=== PATIENT | male | born 1965 | race Caucasian/White ===

== ENCOUNTER 2020-05-27 15:43 | Inpatient (IN) | payer OTHER ==
[~2020-05-27] VITALS: Ht 170.2 cm; Wt 85.4 kg
[2020-05-27 16:27] VITALS: BP 125/81
--- NOTE | 2020-05-27 18:19 | NUR ---
55 year old male arrives via cart accompnied by ambulance adelinakathleen FROM [facility] ER. CURRENTLY LIVING AT [facility] AND IS REPORTED TO HAVE SWALLOWED BLEACH AND A POPSICLE STICK IN ATTEMPT TO HARM SELF. UPON ARRIVAL TO UNIT IS COOPERATIVE-MILDLY ANXIOUS BUT DENIES SI/SH AT THIS TIME. REQUESTING TO CALL SENIOR CARE AND STATES THAT HE MISSES HIS ROOM.
--- NOTE | 2020-05-27 19:36 | NUR ---
RECEIVED CALL FROM RN THROUGH [facility] [phone] SHE PROVIDED NUMBER FOR DC PLANNING OR FOR MD/STAFF INFO ALSO PROVIDED WITH NUMBER OF PTS COMPRESSOR STATION ENGINEER THROUGH [facility] [phone].
[2020-05-27 19:42] VITALS: BP 126/86
--- NOTE | 2020-05-28 04:00 | NUR ---
05-27-20 CARE TRANSFERED AT 1900 OBSERVED PT SITTING IN DAY ROOM. 194 PT AAOX3, VSS, RR EVEN AND NONLABORED ON RA. PT DENIES PAIN AND SI/HI. PT PRESENTS ANXIOUS BUT HAS REMAINED CALM DURING NURSING ASSESSMENT. DURING MEDICATION ADMIN PT HAD NO DIFFICULTIES, PT REPORTED HE WANTED TO GO HOME, PT WAS REASSURED. DURING NEXT ROUND NOTED PT LEFT SIDE LYING RESTING IN BED WITH EYES CLOSED. ZERO S/S OF ACUTE DISTRESS NOTED, PT WILL CONTINUE TO BE MONITOR PER [facility] PROTOCOL.
[2020-05-28 07:22] VITALS: BP 110/67
[2020-05-28 08:51] VITALS: BP 126/86
[2020-05-28 11:16] LABS: ALBUMIN 3.8 g/dL (3.4-5.0); DIRECT BILIRUBIN < 0.1 mg/dL (<0.1-0.2); SGOT 19 U/L (15-37); SGPT 31 U/L (30-65); TOTAL BILIRUBIN 0.3 mg/dL (0.2-1.0); TOTAL PROTEIN 7.9 g/dL (6.4-8.2)
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
--- NOTE | 2020-05-28 11:32 | NUR ---
ASSUMED CARE AT 0700 TODAY. PT. GOT UP, DRESSED AND ON THE UNIT FOR MEALS. HE ANSWERS QUESTIONS SLOWLY AND SEEMS TO UNDERSTAND MOST OF THE INFORMATION GIVEN TO HIM. HE WAS COOPERATIVE WITH TAKING HIS MORNING MEDICATIONS AND FEEDING HIMSELF. NO NEW PROBLEMS NOTED OR VOICED. HE APPEARS DEPRESSED.
[2020-05-28 19:51] VITALS: BP 118/77
--- NOTE | 2020-05-29 04:29 | NUR ---
ASSUMED CARE FROM DAY SHIFT , PT IN DAYROOM CALM COOPERATIVE,AMBULATING , GAIT STEADY. PO MEDICATION TAKEN WITH HS SNACK. PT RESTED WELL THROUGHOUT HOURLY ROUNDS ,WILL CONINTUE WITH CURRENT PLAN OF CARE.
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
--- NOTE | 2020-05-29 18:00 | NUR ---
Pt. got dried clothes out of laundry. He was very patient when his requests were not immediately met saying take your time. Eating well. Stated he had a large BM that was soft not diarrhea. Instructed to report any/all BM's and especially diarrhea to staff and to show it to staff. Said he would. A & O X4.
[2020-05-29 19:52] VITALS: BP 125/80
--- NOTE | 2020-05-29 21:15 | NUR ---
Assumed care on 05/29/20 @ 19:15. Calm and cooperative, after being introduced to this nurse, calls by name on subsequent interactions. HRRR, lungs CTA bilat, ABD n x 4 q, Compliant with medication, taking large p.o. meds whole in yogart and small p.o. meds whole with water. Denies SI/HI, Denies hallucinations, reports small amount of depression and anxiety. In bed lying on the top of the sheets and blankets, reports that he will be hot if he gets under the blankets. Will continue to monitor for safety and comfort.
[2020-05-29 21:52] VITALS: BP 125/80
--- NOTE | 2020-05-30 05:57 | NUR ---
Slept well throughout the night for a total of 8 hours.
[2020-05-30 07:40] VITALS: BP 123/90
[2020-05-30 08:30] VITALS: BP 123/90
--- NOTE | 2020-05-30 08:31 | NUR ---
PT TOOK MEDS WHOLE WITHOUT ANY ISSUES. PT UP AD SHAKIR, HAS A LIMP TO GAIT. PT DRINKING COFFEE THIS AM AND WATER. PT DENIES ANY PAIN. PT STEADY ON FEET.
--- NOTE | 2020-05-30 17:30 | NUR ---
Faxed NH updates to [facility].
--- NOTE | 2020-05-30 17:37 | NUR ---
AFTER GROUP PT RAN TO ROOM TO USE THE BATHROOM. PT ENCOURAGED TO SLOW DOWN. PT STATED TO NURSE EARLIER THAT HE HAS BURNING WITH VOIDING. PT URINE ON 05/22 WAS NEG. PT STATED HE HAS NO ISSUES WITH BM.
--- NOTE | 2020-05-30 18:34 | NUR ---
PT STATED HE HAS A SORE THROAT, ADM LAKSHMI GARLAND.
[2020-05-30 19:55] VITALS: BP 139/84
--- NOTE | 2020-05-30 21:03 | NUR ---
Assumed care on 05/30/20 @ 19:15, Reported himself to be trembling. Provided HS meds, whole with yogart to help swollow large tablets, fed himself the remainder of the cup of yogart. Toileted himself and returned to the day room, watching baseball. Will continue to monitor as per protocol for patient safety and comfort.
[2020-05-30 23:49] VITALS: BP 139/84
[2020-05-31 01:59] LABS: URINE BILIRUBIN NEGATIVE (Negative); URINE BLOOD NEGATIVE (Negative); URINE CLARITY CLEAR; URINE COLOR YELLOW; URINE GLUCOSE-RANDOM* NEGATIVE (Negative); URINE KETONES NEGATIVE (Negative); URINE LEUKOCYTES-REFLEX NEGATIVE (Negative); URINE NITRITE-REFLEX NEGATIVE (Negative); URINE PROTEIN (DIPSTICK) NEGATIVE (Negative); URINE SPECIFIC GRAVITY <= 1.005 (1.005-1.035); URINE UROBILINOGEN 0.2 E.U./dl (0.2-1.0)
--- NOTE | 2020-05-31 06:00 | NUR ---
SLEPT 7.2 HOURS OVERNIGHT.
[2020-05-31 07:34] VITALS: BP 125/84
--- NOTE | 2020-05-31 08:13 | NUR ---
PT SITTING IN DINING ROOM. PT FEEDING SELF. PT TOOK MEDS WHOLE ALL AT ONCE. PT VERY INTRUSIVE WITH TOUCH, PT LIKES TO TOUCH INDIVIDUAL ARMS AND SAY I WANT TO TELL YOU SOMETHING. PT STATED HE HAS SORE TO LOWER LIP, CANKER SORE. PT STATED HE HAD A SEIZURE LAST NIGHT, A LITTLE ONE. PT STATED HE LIKES TO TALK ABOUT HIS FEELINGS.
[2020-05-31 08:30] VITALS: BP 125/84
--- NOTE | 2020-05-31 10:52 | NUR ---
PT STATED HE HAD A BAD DREAM LAST NIGHT AND LIKES TO ACT IT OUT. HE SAID HE HELD HIS PILLOW AND SQUEEZED IT.
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
--- NOTE | 2020-05-31 15:30 | NUR ---
PT WAS IN GROUP AND COMPLAINED OF LEFT SIDE HURTING OF 8 ON 1-10 SCALE. ADM TYLENOL 325MG 2 TABS PO FOR PAIN.
--- NOTE | 2020-05-31 16:00 | NUR ---
PT DID STATE TO THIS CIGARETTE PACKING MACHINE OPERATOR THAT HE LIKES TO ACT OUT HIS DREAMS. PT SAID ONE OF HIS DREAMS WAS TO BURN DOWN THE HALFWAY. DR. HAMILTON DID TALK WITH PT AND ORDERED MEDICATION FOR HIS NIGHTMARES.
[2020-05-31 19:31] VITALS: BP 125/82
--- NOTE | 2020-06-01 01:49 | NUR ---
05-31-20 CARE TRANSFERRED 1899 OBSERVED PT SITTING AT TABLE IN DAY ROOM WATCHING TV. 193 AAOX3, VSS, RR EVEN AND NONLABORED ON RA. PT DENIES ANY PAIN AND SI/HI. PT HAS BEEN CALM AND COOPERATIVE DURING NURSING ASSESSMENT. DURING MEDICATION ADMIN PT HAD NO DIFFICULTIES. ZERO S/S OF ACUTE DISTRESS NOTED, PT WILL BE MONITOR PER [facility] PROTOCOL.
[2020-06-01 07:17] VITALS: BP 116/83
--- NOTE | 2020-06-01 09:40 | NUR ---
PATIENT CARE ASSUMED AT 0700 - PLEASANT AND SOCIAL. NO ISSUES - SLEPT WELL- GOOD APPETITE. MEDICATION COMPLIANT. AMBULATES WITH A SHUFFLE - PARTICIPATED IN GROUPS - MAKES NEEDS KNOWN.
[2020-06-01 20:02] VITALS: BP 126/78
--- NOTE | 2020-06-02 03:44 | NUR ---
06-01-20 CARE TRANSFERRED 1899 OBSERVED PT SITTING IN DAY ROOM WATCHING TV. 1924 PT AAOX2, VSS, RR EVEN AND NONLABORED ON RA. PT PRESENTS ANXIOUS, CALM AND COOPERATIVE AND REPORTED HE HAD A COUPLE OF SEZIURES TODAY, BUT FELT OK AT THIS TIME. PT DENIES ANY PAIN OR SI/HI. DURING MEDICATION ADMIN PT REPORTED HE WANTS TO GO HOME TO HIS ROOM. PT HAD NO DIFFICULTIES TAKING HIS MEDICATION. LATER NOTED PT RIGHT SIDE LYING RESTING IN BED WITH EYES CLOSED. ZERO S/S OF ACUTE DISTRES NOTED, PT WILL CONTINUE TO BE MONITOR PER [facility] PROTOCOL.
[2020-06-02 07:28] VITALS: BP 128/87
--- NOTE | 2020-06-02 11:15 | NUR ---
ASSUMED CARE OF PT AT 0700. PT ALERT AND ORIENTED TIMES FOUR, CALM AND COOPERATIVE. VSS. PT DENEIS SI/HI/AH/VH. ALSO DENIES PAIN/SOA. PT STATES HE SOMETIMES GETS DEPRESSED, BUT NOT TODAY. PT TOLERATES MEDS AND MEALS. PT ATTENDS GROUPS AND INTERACTS WELL WITH STAFF AND PEERS. PT PROGRESSING TOWRADS POC GOALS.
[2020-06-02 20:00] VITALS: BP 130/90
[2020-06-02 23:57] VITALS: BP 130/90
--- NOTE | 2020-06-03 03:57 | NUR ---
ASSUMED CARE ON 06/02/20, SEATED ON A COUCH IN THE DAY ROOM, WATCHING TV AND SOCIALIZING WITH PEERS, REQUESTING NEEDS FROM STAFF. COOPERATES WITH ASSESSMENT AND COMPLIANT WITH MEDICATION ADMINISTRATION. TAKES MEDS WHOLE, TAKES LARGE P.O. MEDS WITH YOGART. HRRR, LUNGS CTA BILAT, ABD N X 4Q, LAST REPORTED BM ON 05/29. GENERALLY INDEPENDENT WITH TOILETING, HOWEVER, WHEN IN HIS ROOM OVERNIGHT WAS NOTED TO BE IN BED WITH NO PANTS OR BRIEFS ON AND THE ENTIRE BATHROOM FLOORS AND TOILET SEAT WET. WET SHORTS AND WET HOSPITAL PANTS NOTED ON THE FLOOR NEXT TO HIS BED. GIVEN INCONTINENT CARE AND THE BATHROOM CLEANED AND WET CLOTHES LAUNDRY. BED IN LOW POSITION. WILL CONTINUE TO MONITOR PER UNIT PROTOCOL.
[2020-06-03 07:29] VITALS: BP 109/72
--- NOTE | 2020-06-03 13:06 | NUR ---
DONOVAN contacted Josh to coordinate d/c for tomorrow. She said that nursing staff will contact DONOVAN to arrange transportation. DONOVAN team will continue to follow pt during his stay on this unit.
--- NOTE | 2020-06-03 16:09 | NUR ---
PT IN A PLEASANT MOOD THROUGHOUT THE DAY. AMBULATES IN THE SIMS AND DAY ROOM WITHOUT ANY ASSIST. PLANS ARE FOR PT TO DC 06/04/20. PT IS AWARE OF DC .
[2020-06-03 19:29] VITALS: BP 106/61
--- NOTE | 2020-06-04 05:30 | NUR ---
Assumed pt's care this pm shift. Pt alert and oriented x4. Pt was in his room at time of assessment. Pt was calm and cooperative during assessment. Pt denied SI/HI/AVH. Pt denied anxiety and/or depression. Pt denied pain. Meds given per emar. Pt took meds whole. Pt slept well this shift. Pt now awake, out in the dayroom, with a very happy affect, greeting staffs. Will given county sheriff meds and will continue to monitor.
[2020-06-04 07:38] VITALS: BP 131/83
[2020-06-04] MEDS ORDERED: RISPERDAL 1 MG T1 MG PO (10:18)
[2020-06-04] MEDS ORDERED: REVIA 50 MG TAB50 M1 PO (10:18)
[2020-06-04] MEDS ORDERED: GEMFIBROZIL 60600 M1 PO (10:18)
[2020-06-04] MEDS ORDERED: PRAZOSIN HCL1 MG PO (10:18)
[2020-06-04] MEDS ORDERED: IRON325 PO (10:18)
[2020-06-04] MEDS ORDERED: CYMBALTA30 MG PO (10:18)
[2020-06-04] MEDS ORDERED: COZAAR 25 MG TA25 M1 PO (10:18)
[2020-06-04] MEDS ORDERED: LEVOTHYROXINE88 MCG PO (10:18)
[2020-06-04] MEDS ORDERED: DIVALPROEX SOD500 M1 PO (10:18)
[2020-06-04] MEDS ORDERED: LIPITOR10 MG PO (10:18)
[2020-06-04] MEDS ORDERED: BENZTROPINE MES1 MG PO (10:18)
[2020-06-04] MEDS ORDERED: FLOMAX0.4 MG PO (10:18)
[2020-06-04] MEDS ORDERED: PROTONIX 20 MG20 M1 PO (10:18)
[2020-06-04] MEDS ORDERED: VITAMIN D310 MC1 PO (10:18)
[2020-06-04] MEDS ORDERED: MULTIVITAMINS PO (10:18)
[2020-06-04] MEDS ORDERED: OXYBUTYNIN 5 MG5 M1 PO (10:18)
[2020-06-04] MEDS ORDERED: METFORMIN HCL500 M1 PO (10:18)
[2020-06-04] MEDS ORDERED: COLACE 100 MG100 MG PO (10:18)
[2020-06-04] MEDS ORDERED: TRAZODONE HCL100 MG PO (10:18)
[2020-06-04] MEDS ORDERED: NEURONTIN600 MG PO (10:18)
--- NOTE | 2020-06-04 10:25 | NUR ---
PT AOX4, SOCIAL WITH STAFF & OTHER PATIENTS. PARTICIPATES IN GROUP ACTIVITIES. PT EXPRESSES EXCITEMENT TO RETURN HOME, STATES HE WILL MISS STAFF HERE. PT STATES HE DOES NOT PLAN TO 'DRINK ANYTHING TO HURT SELF ANYMORE." PT SCHEDULED TO DISCHARGE BACK TO [facility] THIS MORNING. PROGRESSED TOWARDS GOALS FOR DISCHARGE.
--- NOTE | 2020-06-04 10:28 | NUR ---
[facility] D/C NOTE SW faxed discharge docs to [place] including pt's prescriptions and labs. DONOVAN will place a copy of fax and confirmation pg in pt's file. No other needs for SW team to address at this time.
== END 2020-06-04 10:40 | disposition home or self-care (01) | DRG 885 ==
LOC: SBH 15:43
PROVIDERS: ADMIT Psychiatry & Neurology Psychiatry; ATTEND Psychiatry & Neurology Psychiatry
DX: F25.9 Schizoaffective disorder, unspecified (principal); R45.851 Suicidal ideations; F79 Unspecified intellectual disabilities; I10 Essential (primary) hypertension; G40.909 Epilepsy, unspecified, not intractable, without status epilepticus; E11.9 Type 2 diabetes mellitus without complications; E03.9 Hypothyroidism, unspecified; F31.9 Bipolar disorder, unspecified; R45.850 Homicidal ideations; G31.84 Mild cognitive impairment of uncertain or unknown etiology; E78.5 Hyperlipidemia, unspecified; E66.9 Obesity, unspecified; Z68.29 Body mass index [BMI] 29.0-29.9, adult; Z88.8 Allergy status to other drugs, medicaments and biological substances; Z88.5 Allergy status to narcotic agent; Z20.828 Contact with and (suspected) exposure to other viral communicable diseases
CPT/HCPCS: 10880